=== PATIENT | female | born 1955 | race Caucasian/White ===

== ENCOUNTER 2018-06-07 08:53 | Day surgery (SDC) | payer OTHER ==
[2018-06-07] MEDS ORDERED: PROPOFOL 200 MG/20 ML VIAL IV ONE (09:07)
[2018-06-07] MEDS ORDERED: FENTANYL CITR 100 MCG/2 ML ONE (09:08)
[2018-06-07] MEDS ORDERED: MIDAZOLAM HCL 2 MG/2 ML INJ ONE (09:08)
[2018-06-07] MEDS ORDERED: LIDOCAINE 2% MPF 5 ML VIAL ONE (09:08)
[2018-06-07 09:12] LABS: Potassium 4.2 mmol/L (3.5-5.1)
[2018-06-07] MEDS ORDERED: CEFAZOLIN/SWI 1gm 1 GM/10 ML SYR ONE (09:17)
[2018-06-07] MEDS ORDERED: NA CHLORIDE 0.9% 1,000 ML ONE (09:17)
--- NOTE | 2018-06-07 09:20 | RAD REPORT ---
EXAM DESCRIPTION: RAD - Chest Pa And Lat (2 Views) - 06/07/2018 8:51 am CLINICAL HISTORY: Preop chest, pending soft tissue mass removal from the face, COPD COMPARISON: None. TECHNIQUE: PA and lateral views of the chest were obtained. FINDINGS: The lungs are clear. Heart size is normal and central vasculature is within normal limit s. No pleural effusion or pneumothorax seen. No acute bony finding noted. No aortic abnormality. IMPRESSION: No acute cardiopulmonary process.
[2018-06-07 09:24] LABS: Absolute Lymphocytes (CBC) 2.5 K/uL (0.7-4.9); Absolute Monocytes 0.8 K/uL (0.1-1.3); Absolute Neutrophil 5.3 K/uL (1.8-8.0); Basophils % 1.3 % (0-1.3); Eosinophils % 2.1 % (0-4.4); Hematocrit 43.1 % (36.0-45.0); Lymphocytes % 27.9 % (15.3-44.8); MCH 31.3 pg (27.0-35.0); MCV 88.1 fL (80-100); MPV 9.7 fL (7.6-11.3); Monocytes % 9.5 % (3.3-12.3)
[2018-06-07] MEDS: BUPIVACAINE 0.25% PF 10 ML VIAL ONE ×2 (09:31→10:07)
[2018-06-07] MEDS ORDERED: GLYCOPYRROLATE 0.2 MG/ML SYR ONE (10:09)
[2018-06-07] MEDS ORDERED: KETOROLAC 30 MG/ML INJ ONE (10:11)
--- NOTE | 2018-06-07 10:28 | EKG ---
Test Date: 2018-06-07 Test Time: 08:26:42 Seed Expert: NIKKY MEASUREMENT RESULTS: Intervals: Rate: 64 MO: 192 QRSD: 76 QT: 402 QTc: 414 [place]: P: 29 MO: 192 QRS: 5 T: 23 INTERPRETIVE STATEMENTS: Normal sinus rhythm Normal ECG Compared to ECG 04/27/2016 08:35:54 Myocardial infarct finding no longer present Electronically Signed On 06-07-18 10:27:52 CDT by Valentin Dutta
[2018-06-07] MEDS: MEPERIDINE HCL 50 MG/ML AMP ONE ×2 (10:46→10:58)
[2018-06-07] MEDS ORDERED: HYDROCODONE/APAP 7.5/325 MG TAB ONE (11:53)
--- NOTE | 2018-06-07 18:55 | OP ---
Date of Procedure: 06/07/2018 Surgeon: Dave Gallego MD Preoperative Diagnosis: Forehead mass, recurrent. Postoperative Diagnosis: Forehead mass, recurrent. Procedure: Wide excision, forehead mass, 3 x 1 cm with layered closure. Estimated Blood Loss: Minimal. Specimen: Forehead mass. Finding: As above. Anesthesia: General. Complications: None. Disposition: The patient tolerated the procedure in stable condition and taken to Recovery in good g eneral condition. Operative Note: The patient brought to the OR and placed in supine position. General anesthesia was begun. The patient was prepped and draped in usual sterile fashion. Marcaine 0.25% infiltrated loc ally. A 15-blade was used to excise this approximately 7 mm mass with normal skin border. Subcutane ous tissue divided, mass excised, and sent to pathology after being appropriately labeled and wound i rrigated. Bleeding controlled with cautery. Flaps created. 3-0 chromic used to reapproximate subcu taneous tissue and nylons were used to close the skin. Sterile dressing was applied. The patient wa s awakened and taken to Recovery in good general condition. Discharge Note: The patient will go to Day Surgery and home when stable. Disposition: Home. Condition: Stable. Discharge Instructions: Resume home medications and diet. Activity as tolerated. No heavy lifting. Remove outer dressing in 2 days. Shower. Keep wound clean and dry. Keep Steri-Strips on at all t imes. Tylenol No.3 one tablet p.o. q.4 p.r.n. pain. Follow up in my office 2 weeks. Call for mariceloi andry. IRENE/MADDI Voice ID: [id number] Report ID: [id number]
== END 2018-06-07 12:35 | disposition home or self-care (01) ==
LOC: OR 08:53
PROVIDERS: ATTEND Surgery
PROC: 0JB10ZZ Excision of Face Subcutaneous Tissue and Fascia, Open Approach (ICD-10-PCS; principal; 2018-06-07 10:00)
DX: L70.0 Acne vulgaris (principal); I10 Essential (primary) hypertension; J44.9 Chronic obstructive pulmonary disease, unspecified; F17.210 Nicotine dependence, cigarettes, uncomplicated; Z91.040 Latex allergy status
CPT/HCPCS: 11441; 12052; 36415; 71046; 80048; 82962 ×2; 85025; 88305; 93005; J0690; J2175; J2250; J3010; J7030

== ENCOUNTER 2020-10-28 07:30 | Day surgery (SDC) | payer OTHER ==
[2020-10-24 16:07] LABS: Protime INR 1.08
[2020-10-24 16:09] LABS: Absolute Lymphocytes (CBC) 1.4 K/uL (0.7-4.9); Basophils % 1.5 % (0-1.3); Hematocrit 40.2 % (36.0-45.0); Lymphocytes % 32.7 % (15.3-44.8); MPV 9.7 fL (7.6-11.3); RBC Red Blood Cell Count 4.54 M/uL (3.86-4.86)
[2020-10-24 16:16] LABS: Potassium 4.6 mmol/L (3.5-5.1)
--- NOTE | 2020-10-24 19:03 | RAD REPORT ---
EXAM DESCRIPTION: RAD - Chest Pa And Lat (2 Views) - 10/24/2020 4:36 pm CLINICAL HISTORY: left heart cath, preop examination, hypertension, apnea, COPD, smoking history COMPARISON: Two view chest May 2019 TECHNIQUE: Frontal and lateral views of the chest were obtained. FINDINGS: The lungs are clear. Interstitial pattern matches comparison. Heart size is normal and ce ntral vasculature is within normal limits. No pleural effusion or pneumothorax seen. No acute bony finding noted. No aortic abnormality. IMPRESSION: No acute cardiopulmonary process. No significant change from comparison study.
[~2020-10-28 07:30] MED LIST: HEPA 1000U/500MLS 1,000 UNIT/500 ML BAG IV ONE; LIDOCAINE 1% MPF 30 ML VIAL ONE
[2020-10-28] MEDS ORDERED: NA CHLORIDE 0.9% 500 ML ONE (08:03)
[2020-10-28] MEDS ORDERED: FENTANYL CITR 100 MCG/2 ML ONE (10:27)
[2020-10-28] MEDS ORDERED: NA CHLORIDE 0.9% 0 ML ONE (10:27)
[2020-10-28] MEDS ORDERED: ATROPINE SULF 1 MG/10 ML SYR IV ONE (10:27)
[2020-10-28] MEDS ORDERED: MIDAZOLAM HCL 2 MG/2 ML INJ ONE (10:27)
--- NOTE | 2020-10-28 12:22 | OP ---
Surgeon: Toni Weinstein MD Clinical Counselor: Jerry Bernal. The patient had an Angio-Seal to close her right common femoral artery area. She will be at bedrest for 2 hours and go home later, and I will see her in the office in the next 2 weeks. No change in me dical therapy at this point. 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 Indication: Unstable angina. Procedure In Detail: She was prepped and draped in the routine sterile fashion. She was given Verse d and fentanyl for sedation. A 6-Salvadorean sheath was introduced in the right common femoral artery suc cessfully using the Seldinger technique, 10 cc of Xylocaine. I used a long JR wire. Selective bhavesh terization of the left main and right main were used using Leonie catheter 6-Salvadorean. She was found to have a normal left main, normal diagonal. She had about a 30% to 40% distal LAD stenosis. Circum flex was normal and was nondominant. RCA was dominant, was a very large vessel, very ectatic distall y in the posterior PDA segment. She had a 50% stenosis in 1 of the branches off the PDA. An LV-gram was done using the JR4 catheter. The LV-gram was normal without any wall motion abnormalities. Her end-diastolic pressure in the left ventricle was 30 mmHg. There were no gradient. Heart rhythm was normal. Ejection fraction was 60%. Total conscious sedation was 45 minutes. Complications: None. Blood Loss: 5 mL. Postoperative Diagnosis: [id number] coronary artery disease. Plan: Plan is for medical therapy. STEFAN/MADDI Voice ID: [id number] Report ID: [id number]
[2020-10-28 12:45] VITALS: BP 114/64; TEMP 97.7; O2SAT 99
== END 2020-10-28 13:01 | disposition home or self-care (01) ==
LOC: CCL 07:30
DX: I25.110 Atherosclerotic heart disease of native coronary artery with unstable angina pectoris (principal); Z20.828 Contact with and (suspected) exposure to other viral communicable diseases; I10 Essential (primary) hypertension; E78.2 Mixed hyperlipidemia; I35.1 Nonrheumatic aortic (valve) insufficiency; K21.9 Gastro-esophageal reflux disease without esophagitis; G62.9 Polyneuropathy, unspecified; Z82.49 Family history of ischemic heart disease and other diseases of the circulatory system; I51.7 Cardiomegaly; R94.31 Abnormal electrocardiogram [ECG] [EKG]
CPT/HCPCS: 85025; 80048; 36415; 85610; 82947 ×2; 85730; 71046; 93458; U0002; C1893; C1760; J2250; J7040; J1644; J0583; J3010

== ENCOUNTER 2025-03-06 06:09 | Day surgery (SDC) | payer OTHER ==
[2025-03-04 16:12] LABS: Absolute Basophils 0.1 K/uL (0-0.5); Absolute Eosinophils 0.2 K/uL (0-0.5); Absolute Lymphocytes (CBC) 1.1 K/uL (0.7-4.9); Absolute Monocytes 0.5 K/uL (0.1-1.3); Absolute Neutrophil 4.4 K/uL (1.8-8.0); Basophils % 1.3 % (0-1.3); Eosinophils % 2.4 % (0-4.4); Hematocrit 44.9 % (36.0-45.0); Hemoglobin 15.4 g/dL (12.0-15.0); Lymphocytes % 17.8 % (15.3-44.8); MCH 30.5 pg (27.0-35.0); MCHC 34.2 g/dL (32.0-36.0); MPV 8.7 fL (7.6-11.3); Monocytes % 8.7 % (3.3-12.3); Neutrophils % 69.8 % (41.7-73.7); Nucleated Red Blood Cells % 0.1 % (0-0); Platelets 154 thou/uL (152-406); RBC Red Blood Cell Count 5.04 M/uL (3.86-4.86); Red Cell Distribution Width 14.3 % (12.1-15.2)
[2025-03-04 16:24] LABS: Anion Gap 7.1 mEq/L (5.0-15.0); Potassium 4.1 mEq/L (3.5-5.1)
[2025-03-06] MEDS: NA CHLORIDE 0.9% 1,000 ML ONE (06:35)
[2025-03-06] MEDS ORDERED: SUCCINYLCHOLINE 20 MG/ML (10 ML) IV ONE (07:22)
[2025-03-06] MEDS ORDERED: propofoL 200 MG/20 ML VIAL IV ONE (07:25)
[2025-03-06] MEDS ORDERED: LIDOCAINE 1% MPF 5 ML VIAL ONE (07:26)
[2025-03-06 10:18] VITALS: O2SAT 99
[2025-03-06 10:21] VITALS: BP 116/54
[2025-03-06 10:36] LABS: Ferritin 89.3 ng/mL (8-252); Thyroid Stimulating Hormone 0.404 uIU/mL (0.358-3.740)
[2025-03-06 10:39] VITALS: TEMP 95.7
[2025-03-06 10:50] LABS: PT Prothrombin Time 13.3 SECONDS (10-13.0); PTT, Activated Partial Thromb 34.7 SECONDS (27.2-37.4); Protime INR 1.18
[2025-03-06 11:49] LABS: HBsAG Nonreactive Report Report; Hepatitis B Core IgM Nonreactive (Nonreactive); Hepatitis B surface AG Interp. Nonreactive (Nonreactive); Hepatitis C Virus Ab Nonreactive (Nonreactive)
--- NOTE | 2025-03-06 12:41 | EKG ---
Test Date: 2025-03-04 Test Time: 15:50:28 [employer] Secretary: BRAN MEASUREMENT RESULTS: Intervals: Rate: 72 [place]: 192 QRSD: 80 QT: 388 QTc: 424 [place]: P: 56 [place]: 192 QRS: -32 T: 60 INTERPRETIVE STATEMENTS: Normal sinus rhythm Left axis deviation Low voltage QRS Septal infarct, age undetermined Abnormal ECG Compared to ECG 06/07/2018 08:26:42 Left-axis deviation now present Low QRS voltage now present Myocardial infarct finding now present Electronically Signed On 03-06-25 12:37:21 CDT by Pato Bernal
== END 2025-03-06 10:00 | disposition home or self-care (01) ==
LOC: OR 06:09
PROVIDERS: ATTEND Internal Medicine Gastroenterology
PROC: 0DB58ZX Excision of Esophagus, Via Natural or Artificial Opening Endoscopic, Diagnostic (ICD-10-PCS; 2025-03-06)
PROC: 0DB68ZX Excision of Stomach, Via Natural or Artificial Opening Endoscopic, Diagnostic (ICD-10-PCS; principal; 2025-03-06 07:30)
DX: K29.50 Unspecified chronic gastritis without bleeding (principal); K21.9 Gastro-esophageal reflux disease without esophagitis; R14.1 Gas pain; R11.0 Nausea
CPT/HCPCS: 43239; 93005; 85025; 80048; 36415 ×2; 82550; 88312; 85610; 82947; 88305; 85730; 84443; 82728; 83540; 82533; 87389; 82105; 86038; 86255; 82784; 84466; 82390; 82103; 86021 ×2; 86376; 80074; 81596; 86015; 86364; 86671 ×2; J2704; J2003; J7030

== ENCOUNTER 2025-03-27 06:15 | Day surgery (SDC) | payer OTHER ==
[2025-03-27] MEDS ORDERED: LIDOCAINE 1% MPF 5 ML VIAL ONE (06:56)
[2025-03-27] MEDS ORDERED: propofoL 200 MG/20 ML VIAL IV ONE (06:57)
[2025-03-27] MEDS: NA CHLORIDE 0.9% 1,000 ML ONE (07:53)
[2025-03-27 08:54] VITALS: O2SAT 99
[2025-03-27 09:32] VITALS: TEMP 98
[2025-03-27 09:34] VITALS: BP 146/82
--- NOTE | 2025-03-29 09:10 | RAD REPORT ---
EXAM: Chest Abdomen Pelvis W Cont CLINICAL INDICATION: Female, 69 years ILEOCECAL MASS ON COLONOSCOPY TECHNIQUE: CT chest, abdomen and pelvis was performed, with IV contrast, as per department protocol. Axial, sagittal and coronal reconstructions were obtained. One or more of the following dose reduction techniques were used: Automated exposure control, adjustment of the mA and/or kV according to the patient size, and/or iterative reconstruction. Unless otherwise specified, incidental findings do not require dedicated imaging follow-up. [id number]. COMPARISON: 02/08/2025 FINDINGS: ---THORAX--- LOWER NECK AND CHEST WALL: Visualized thyroid gland and soft tissues are normal. LUNGS AND AIRWAYS: Unchanged 3 mm left lower lobe pulmonary nodule which is almost certainly benign.N o dominant or clearly suspicious nodule identified. PLEURA: No pleural effusion. No pneumothorax. MEDIASTINUM AND LYMPH NODES: No mediastinal mass or fluid collection. Normal size mediastinal, hilar, and axillary lymph nodes. Mild distal esophageal thickening. Lower paraesophageal varices. THORACIC AORTA: No thoracic aortic aneurysm. PULMONARY ARTERIES: Caliber is within normal limits. HEART: Normal heart size. No coronary calcifications.No significant pericardial effusion. ---ABDOMEN/PELVIS--- UPPER GI: No significant abnormality. LIVER: Cirrhotic liver morphology. No focal masses. GALLBLADDER/BILE DUCTS: No biliary ductal dilatation.?Distended gallbladder. PANCREAS: No mass, ductal dilation, or lalit-pancreatic fluid. SPLEEN: Unremarkable. ADRENALS: No adrenal masses. KIDNEYS AND URETERS: No hydronephrosis.No suspicious renal mass.No renal calculi. ABDOMINAL AORTA AND OTHER VESSELS: Normal caliber aorta and IVC. PERITONEUM: Trace perihepatic ascites. LYMPH NODES: No pathologic lymphadenopathy. ABDOMINAL WALL: Unremarkable SMALL BOWEL/COLON: Small bowel has normal course and caliber. No colonic wall thickening or pericolon ic inflammatory changes. Mild diverticulosis without diverticulitis. URINARY BLADDER: Underdistended but grossly unremarkable. REPRODUCTIVE ORGANS: Uterus surgically absent. No adnexal abnormality. ---COMBINED--- MUSCULOSKELETAL: Schmorl's node present at T11. ACDF in the cervical spine. No suspicious osseous les ions. ADDITIONAL FINDINGS: None. IMPRESSION: No evidence of metastatic disease within the chest, abdomen or pelvis. No regional lymphadenopathy in the abdomen. The reported ileocecal mass is not appreciated on CT. Cirrhosis.
== END 2025-03-27 12:00 | disposition home or self-care (01) ==
LOC: OR 06:15
PROVIDERS: ATTEND Internal Medicine Gastroenterology
PROC: 0DBC8ZX Excision of Ileocecal Valve, Via Natural or Artificial Opening Endoscopic, Diagnostic (ICD-10-PCS; 2025-03-27)
PROC: 0DBK8ZX Excision of Ascending Colon, Via Natural or Artificial Opening Endoscopic, Diagnostic (ICD-10-PCS; principal; 2025-03-27 07:30)
DX: K92.1 Melena (principal); K64.8 Other hemorrhoids; K64.4 Residual hemorrhoidal skin tags; D12.2 Benign neoplasm of ascending colon; D12.0 Benign neoplasm of cecum; Z86.0100 Personal history of colon polyps, unspecified
CPT/HCPCS: 36415; 82947; 88305; 82378; 71260; 74177; 45380; 45385; Q9967; J2704; J2003; J7030